=== PATIENT | female | born 1960 ===

== ENCOUNTER → 2018-01-03 14:38 | Outpatient (CLI) | payer OTHER, SELFPAY ==
[2018-01-03 15:00] LABS: Add Manual Diff / Slide Review NO; Basophils Percent Auto 0.6 % (0-2); Eosinophils Percent Auto 0.9 % (2-4); Hematocrit 39.1 % (36-46); Hemoglobin 13.3 g/dL (12.0-16.0); Lymphocytes Percent Auto 35.8 % (25-40); Mean Corpuscular HGB Conc 34.1 % (30-36); Mean Corpuscular Hemoglobin 33.2 PG (26-34); Mean Corpuscular Volume 97.3 fL (80-100); Monocytes Percent Auto 10.5 % (3-14); Neutrophils Absolute Auto 2700 /uL (3000-5900); Neutrophils Percent Auto 52.2 % (50-75); Platelet Count 178 X10^3/uL (150-400); Red Blood Cell Count 4.02 X10^6/uL (4.0-5.2); White Blood Cell Count 5.1 X10^3/uL (4.5-11.0)
[2018-01-03 15:25] LABS: Alanine Aminotransferase 43 IU/L (9-52); Albumin 3.9 g/dL (3.5-5.0); Albumin Globulin Ratio 1.4 (1.0-2.8); Alkaline Phosphatase 85 U/L (38-126); Aspartate Aminotransferase 30 IU/L (14-36); Bilirubin Total 0.6 mg/dL (0.2-1.3); Bilirubin Unconjugated 0.2 mg/dL (0.0-1.1); Globulin 2.7 g/dL (1.7-4.1); HEMOLYSIS < 15 (0-50); Total Protein 6.6 g/dL (6.3-8.2)
== END ==
PROVIDERS: PCP Internal Medicine; Visit Provider Internal Medicine Medical Oncology
DX: C92.00 Acute myeloblastic leukemia, not having achieved remission (principal)
CPT/HCPCS: 36415; 80076; 85025

== ENCOUNTER 2020-05-27 16:19 | Emergency (ER) | payer OTHER, SELFPAY ==
[2020-05-27 16:44] VITALS: BP 167/83; PULSE 80; RESP 16; TEMP 36.8; O2SAT 99; BMI 33.2
[2020-05-27 16:49] VITALS: BP 153/59; PULSE 80; RESP 18; O2SAT 99
[2020-05-27 17:19] LABS: INR 1.2 (0.9-1.3); Prothrombin Time 13.5 SECONDS (10.1-12.7)
[2020-05-27 17:22] LABS: PTT Partial Thromboplastin Tim 32 SECONDS (26.4-36.2)
[2020-05-27 17:23] LABS: Alanine Aminotransferase 40 IU/L (<35); Albumin 4.2 g/dL (3.5-5.0); Albumin Globulin Ratio 1.4 (1.0-2.8); Alkaline Phosphatase 144 U/L (38-126); Aspartate Aminotransferase 32 IU/L (14-36); BUN Creatinine Ratio 28.6 (6-22); Bilirubin Total 0.8 mg/dL (0.2-1.3); Blood Urea Nitrogen 16 mg/dL (7-17); Calcium 9.3 mg/dL (8.4-10.2); Carbon Dioxide 29 mmol/L (22-32); Chloride 97 mmol/L (98-107); Estimated Glomerular Filt Rate > 60.0 mL/min (>60); Glucose 327 mg/dL (80-110); HEMOLYSIS 30 (0-50); Lipase 66 U/L (23-300); Potassium 4.1 mmol/L (3.4-5.1); Sodium 131 mmol/L (137-145); Total Protein 7.2 g/dL (6.3-8.2)
[2020-05-27 17:24] LABS: Add Manual Diff / Slide Review NO; Basophils Absolute Auto 0 /uL (0-100); Basophils Percent Auto 0.6 % (0-2); Eosinophils Absolute Auto 0 /uL (0-450); Eosinophils Percent Auto 0.5 % (2-4); Hematocrit 42.5 % (36-46); Hemoglobin 14.4 g/dL (12.0-16.0); Lymphocytes Absolute Auto 1500 /uL (1100-4500); Lymphocytes Percent Auto 23.7 % (25-40); Mean Corpuscular HGB Conc 33.9 % (30-36); Mean Corpuscular Hemoglobin 32.4 PG (26-34); Mean Corpuscular Volume 95.5 fL (80-100); Monocytes Absolute Auto 600 /uL (0-900); Monocytes Percent Auto 9.8 % (3-14); Neutrophils Absolute Auto 4200 /uL (1500-7000); Neutrophils Percent Auto 65.4 % (50-75); Platelet Count 230 X10^3/uL (150-400); Red Blood Cell Count 4.45 X10^6/uL (4.0-5.2); Red Cell Distribution Width 13.2 % (11.6-14.8); White Blood Cell Count 6.4 X10^3/uL (4.5-11.0)
[2020-05-27 18:09] VITALS: BP 133/77; PULSE 75; RESP 18; O2SAT 99
--- NOTE | 2020-05-27 18:27 | ED.GENADULT ---
HPI - General Adult General Chief complaint: Diabetic Problem Stated complaint: HIGH BLOOD SUGAR Time Seen by Provider: 05/27/20 18:10 Source: patient Mode of arrival: Ambulatory Limitations: no limitations History of Present Illness HPI narrative: The patient was referred from [facility] due to hyperglycemia. She has type 2 diabetes, she has generally been managed with metformin. The metformin was stopped about 2 months ago, her hemoglobin A1c improved to 5.7. Six days ago she received steroid injections bilaterally to her knees. Labs were drawn 4 days ago. Her glucose level was 494 on that day. Her diabetic nurse called her today regarding the hyperglycemia. She came here for repeat evaluation. She has experienced a bump in her glucose level previously after receiving injections, but on metformin at that time. She had complains of mild weakness. She has increased thirst, increased urine output. Her appetite is unaffected. She has no headache, sore throat, cough or dyspnea. She has no chest complaint. She has no abdominal pain. She denies dysuria or hematuria. Related Data Home Medications Medication Instructions Recorded Confirmed magnesium amino acid chelate PO HS #0 07/08/17 05/25/20 pantoprazole PO QDAY #0 07/08/17 05/25/20 loratadine 10 mg tablet 10 mg PO DAILY 11/23/19 05/25/20 rivaroxaban 20 mg tablet 20 mg PO QPM 11/23/19 05/25/20 sulfasalazine 500 mg tablet 1 gram PO BID 11/23/19 05/25/20 Previous Rx's Medication Instructions Recorded diltiazem HCl 180 mg PO QDAY 30 Days #0 cap 07/08/17 Allergies Allergy/AdvReac Type Severity Reaction Status Date / Time piperacillin [From ZOSYN] Allergy Severe severe rash Unverified 05/27/20 16:45 tazobactam [From ZOSYN] Allergy Severe severe rash Unverified 05/27/20 16:45 vancomycin [VANCOMYCIN] Allergy Intermediate rash Unverified 05/27/20 16:45 Cephalosporins Allergy Unknown reported Unverified 05/27/20 16:45 [CEPHALOSPORINS] sensitivity w/ hx of severe reactions Review of Systems Constitutional Constitutional: Reports body ache(s), Denies chills, Reports fatigue, Denies fever(s), Denies headache(s) and Denies weakness Eyes Eyes: Denies change in vision ENT Ears, Nose, Mouth, and Throat: Denies headache(s), Denies neck pain and Denies sore throat Cardiovascular Cardiovascular: Denies dyspnea Respiratory Respiratory: Denies cough, Denies dyspnea and Denies wheezing Gastrointestinal Gastrointestinal: Denies abdominal pain, Denies change in bowel habits, Denies diarrhea, Denies nausea and Denies vomiting Genitourinary Genitourinary: Denies dysuria and Denies urinary urgency Genitourinary: Denies dysuria and Denies urinary urgency Comments: Polyuria. Musculoskeletal Musculoskeletal: Denies back pain, Denies neck pain and Denies numbness Integumentary/Breasts Skin/Breast: Denies erythema, Denies rash and Denies wounds Neurologic Neurologic: Denies confusion, Denies headache(s), Denies numbness and Denies weakness Psychiatric Psychiatric: Denies confusion Endocrine Endocrine: Reports fatigue Allergic/Immunologic Allergic/Immunologic: Denies wheezing Patient History Medical History Allergic rhinitis AML (acute myeloid leukemia) in remission Atrial fibrillation with controlled ventricular rate GERD (gastroesophageal reflux disease) History of Izaguirre-Chuy toxic epidermal necrolysis overlap syndrome (~12/2015) Obesity (BMI 30-39.9) (~11/23/19) Obstructive sleep apnea of adult (~2009) Osteoarthritis involving multiple joints on both sides of body Pancytopenia Social History marital status: details: to Jethro household members: spouse lives independently: Yes caregiver/support person: Yes pets and animals: Yes occupational status: employed Smoking Status: Never smoker alcohol intake: current (very rare social) substance use type: does not use Smoking Status: Never smoker alcohol intake frequency: holidays/special occasions only Substance Use Type: does not use Exam Initial Vital Signs Initial Vital Signs: Vital Signs Temperature 98.2 F 05/27/20 16:44 Pulse Rate 80 05/27/20 16:44 Respiratory Rate 16 05/27/20 16:44 Blood Pressure 167/83 H 05/27/20 16:44 Pulse Oximetry 99 05/27/20 16:44 Const General: cooperative and well developed Nutritional Appearance: well nourished HENOR Head: normocephalic and atraumatic Throat: posterior oropharynx normal Eyes General: appearance normal, both eyes and all related structures Eyelids: eyelids normal Conjunctivae: conjunctivae normal Sclera: sclerae normal Pupils: PERRL EOM: EOM intact bilaterally Neck Neck: No lymphadenopathy and No JVD Resp Effort & Inspection: normal respiratory effort Auscultation: clear to auscultation bilaterally, no rales, no rhonchi and no wheezes Cardio Rate: regular rate Rhythm: regular rhythm Heart Sounds: S1 normal, S2 normal, no click, no gallops, no murmurs and no rubs Pulses: normal peripheral pulses GI Inspection: non-distended Palpation: soft, no hepatosplenomegaly, No guarding, No pulsatile mass and No tender Auscultation: normal bowel sounds Back/Spine/Pelvis Back: No CVA tenderness Skin General: no rashes or lesions noted and No jaundice Neuro General: patient alert, patient oriented x3, gait normal and no focal motor deficits Speech: speech normal Extrem General: full ROM, no clubbing, cyanosis or edema, no pedal edema and no calf tenderness Psych Appearance: well kempt Mental Status: mental status grossly normal Attitude: cooperative Thought Content: normal Judgment: judgment good Course Course Course Narrative: Her glucose has improved from 327 to 251 with hydration. She is advised to restart metformin and follow up with her PCM. Orders Ordered: ED Orders 05/27/20 17:01 Complete Blood Count AUTO DIFF Stat Comprehensive Metabolic Panel Stat Lipase Stat Partial Thromboplastin Time Stat Prothrombin Time INR Stat 05/27/20 17:07 EKG-12 Lead Stat Discontinued Medications Sodium Chloride (Normal Saline 0.9%) 1,000 mls @ 1,000 mls/hr IV BOLUS ONE Stop: 05/27/20 19:25 Last Infusion: 05/27/20 20:29 Dose: 0 mls/hr Documented by: Admin: 05/27/20 18:41 Dose: 1,000 mls/hr Documented by: ESPINOZA Vital Signs Vital signs: Vital Signs - 8 hr 05/27/20 16:44 05/27/20 16:49 05/27/20 18:09 Temperature 98.2 F Pulse Rate 80 80 75 Respiratory Rate 16 18 18 Blood Pressure 167/83 H 153/59 H 133/77 Pulse Oximetry 99 99 99 05/27/20 19:30 05/27/20 20:30 Temperature Pulse Rate 69 Respiratory Rate 18 Blood Pressure 141/74 H 111/59 L Pulse Oximetry 97 Medical Decision Making Lab Data Result diagrams: 05/27/20 17:01 05/27/20 17:01 Labs: Lab Results 05/27/20 05/27/20 05/27/20 Range/Units 17:01 17:01 17:01 WBC 6.4 (4.5-11.0) X10^3/uL RBC 4.45 (4.0-5.2) X10^6/uL Hgb 14.4 (12.0-16.0) g/dL Hct 42.5 (36-46) % MCV 95.5 (80-100) fL MCH 32.4 (26-34) PG MCHC 33.9 (30-36) % RDW 13.2 (11.6-14.8) % Plt Count 230 (150-400) X10^3/uL Neut % (Auto) 65.4 (50-75) % Lymph % (Auto) 23.7 L (25-40) % Grainger % (Auto) 9.8 (3-14) % Eos % (Auto) 0.5 L (2-4) % Baso % (Auto) 0.6 (0-2) % Neut # (Auto) 4200 (0059-8364) /uL Lymph # (Auto) 1500 (3689-8226) /uL Grainger # (Auto) 600 (0-900) /uL Eos # (Auto) 0 (0-450) /uL Baso # (Auto) 0 (0-100) /uL PT 13.5 H (10.1-12.7) SECONDS INR 1.2 (0.9-1.3) APTT 32 (26.4-36.2) SECONDS Sodium 131 L (137-145) mmol/L Potassium 4.1 (3.4-5.1) mmol/L Chloride 97 L (98-107) mmol/L Carbon Dioxide 29 (22-32) mmol/L BUN 16 (7-17) mg/dL Creatinine 0.56 (0.52-1.04) mg/dL Estimated GFR > 60.0 (>60) mL/min BUN/Creatinine Ratio 28.6 H (6-22) Glucose 327 H (80-110) mg/dL Calcium 9.3 (8.4-10.2) mg/dL Total Bilirubin 0.8 (0.2-1.3) mg/dL AST 32 (14-36) IU/L ALT 40 H (<35) IU/L Alkaline Phosphatase 144 H (38-126) U/L Total Protein 7.2 (6.3-8.2) g/dL Albumin 4.2 (3.5-5.0) g/dL Globulin 3.0 (1.7-4.1) g/dL Albumin/Globulin Ratio 1.4 (1.0-2.8) Lipase 66 (23-300) U/L Point of Care Testing Glucose POC 251 Point of care testing: Point of Care Testing Glucose POC 251 Discharge Plan Departure Patient Disposition: Home Clinical Impression: Hyperglycemia due to type 2 diabetes mellitus Qualifiers: Diabetes mellitus custodial insulin use: with long goods drier use Qualified Code(s): E11.65 - Type 2 diabetes mellitus with hyperglycemia Instructions: DI for Diabetes Type 2 Activity Restrictions/Additional Instructions: Resume using your metformin. Monitor your glucose level, keep a regular diarrhea of your glucose levels. Follow-up with your regular doctor in about a week for further guidance. Prescriptions: No Action pantoprazole 20 mg tablet,delayed release (DR/EC) PO QDAY Qty: 0 RF: 0 magnesium amino acid chelate 100 mg tablet PO HS Qty: 0 RF: 0 diltiazem HCl 180 MG capsule,extended release 24hr 180 mg PO QDAY 30 Days Qty: 0 RF: 0 Xarelto 20 mg tablet 20 mg PO QPM RF: 0 sulfasalazine 500 mg tablet 1 gram PO BID RF: 0 loratadine [Claritin] 10 mg tablet 10 mg PO DAILY RF: 0 Referrals: Jeanette Olson MD [Primary Care Provider] -
[2020-05-27] MEDS: SODIUM CHLORIDE 0.9% 1,000 ML 1000 ML IV (18:41)
[2020-05-27 19:30] VITALS: BP 141/74; PULSE 69; RESP 18; O2SAT 97
[2020-05-27 20:30] VITALS: BP 111/59
== END 2020-05-27 20:41 | disposition home or self-care (01) ==
PROVIDERS: Emergency Medicine; Emergency Provider Emergency Medicine; PCP Internal Medicine
DX: E11.65 Type 2 diabetes mellitus with hyperglycemia (principal); R53.1 Weakness; I48.91 Unspecified atrial fibrillation; E66.9 Obesity, unspecified; Z68.33 Body mass index [BMI] 33.0-33.9, adult
CPT/HCPCS: 36415; 80053; 82962; 83690; 85025; 85610; 85730; 96360; 96361; 99282; 99284